=== PATIENT | male | born 1970 | race Caucasian/White ===

== ENCOUNTER 2017-03-21 20:45 | Emergency (ER) | payer OTHER ==
[~2017-03-21] VITALS: Ht 180.3 cm; Wt 82.2 kg
[~2017-03-21 20:45] MED LIST: CIPROFLOXACIN500 M1 PO; METRONIDAZOLE500 MG PO; NABUMETONE500 MG PO
[2017-03-21 21:39] LABS: HEMATOCRIT 41.3 % (38.0-50.0); HEMOGLOBIN 15.1 G/DL (12.5-16.6); MCH 32.3 PG (29.0-34.0); MCHC 36.6 G/DL (30.0-36.0); MCV 88.4 FL (86-99); PLATELET COUNT 244 K/uL (156-360); RBC DIS.WIDTH-CV 11.5 % (11.8-14.6); RBC DIS.WIDTH-SD 36.6 % (39-53); RED BLOOD COUNT 4.67 M/uL (4.00-5.50); WHITE BLOOD COUNT 8.1 K/uL (4.1-10.2)
[2017-03-21 21:46] LABS: ALBUMIN 4.5 g/dL (3.2-4.8)
[2017-03-21 21:47] LABS: CHLORIDE 107 mEq/L (99-109); POTASSIUM 3.6 mEq/L (3.7-5.4); SODIUM 141 mEq/L (136-147)
[2017-03-21 21:49] LABS: GLUCOSE 108 mg/dL (70-99); TOTAL PROTEIN 7.6 g/dL (6.4-8.3)
[2017-03-21 21:52] LABS: ALKALINE PHOSPHATASE 57 IU/L (3-129)
[2017-03-21 21:53] LABS: GFR ESTIMATE (CALCULATED) > 59 mL/min/ (58.99-99999)
[2017-03-21 21:54] LABS: AST (GOT) 28 IU/L (2-34); UREA NITROGEN (BUN) 13 mg/dL (9-23)
[2017-03-21 21:56] LABS: ALT (GPT) 37 IU/L (3-49)
[2017-03-21 23:37] VITALS: BP 127/83
== END 2017-03-21 23:38 | disposition home or self-care (01) ==
LOC: EME 20:45 → TRA 20:45
PROVIDERS: Emergency Medicine
DX: S06.2X9A Diffuse traumatic brain injury with loss of consciousness of unspecified duration, initial encounter (principal); F10.129 Alcohol abuse with intoxication, unspecified; N20.9 Urinary calculus, unspecified; M50.30 Other cervical disc degeneration, unspecified cervical region; V43.52XA Car driver injured in collision with other type car in traffic accident, initial encounter; Y92.410 Unspecified street and highway as the place of occurrence of the external cause
CPT/HCPCS: 70450; 71260; 72125; 74177; 80053; 85027